=== PATIENT | male | born 1965 ===

== ENCOUNTER → 2021-06-19 | Outpatient (CLI) | payer BC ==
[~2021-06-19] MED LIST: FISH1000
[2021-06-20 09:57] LABS: Stool Occult Bld Immuno 1 Negative (NEGATIVE)
== END | disposition home or self-care (01) ==
LOC: LAB SHORT 18:38
PROVIDERS: Internal Medicine Gastroenterology
DX: Z12.11 Encounter for screening for malignant neoplasm of colon (principal)
CPT/HCPCS: 82274

== ENCOUNTER → 2021-08-16 | Outpatient (CLI) | payer BC ==
[2021-08-17 08:28] LABS: Stool Occult Bld Immuno 1 Negative (NEGATIVE)
== END | disposition home or self-care (01) ==
LOC: LAB 13:00 → LAB SHORT 13:00
PROVIDERS: Internal Medicine Gastroenterology
DX: Z12.11 Encounter for screening for malignant neoplasm of colon (principal)
CPT/HCPCS: 82274